=== PATIENT | female | born 1950 | race Caucasian/White ===

== ENCOUNTER 2018-08-03 20:17 | Observation (INO) ==
[2018-08-03 21:12] LABS: BASO# 0.03 X1000 (0.0-0.2); BASO% 0.5 % (0.0-0.8); EOS# 0.16 X1000 (0.0-0.7); EOS% 2.9 % (0.0-10.0); HEMATOCRIT 38.9 % (37.0-47.0); HEMOGLOBIN 13.1 g/dL (12.0-16.0); LYMPH# 2.28 X1000 (1.2-3.4); LYMPH% 41.4 % (20.5-51.1); MCH 31.3 PG (27-31); MCHC 33.7 g/dL (33-37); MCV 93.1 FL (81-99); MONO# 0.39 X1000 (0.11-0.59); MONO% 7.1 % (1.7-9.3); MPV 12.5 FL (7.4-10.4); NEUT# 2.65 X1000 (1.4-6.5); NEUT% 48.1 % (42.2-75.2); PLT 206 X1000 (130-400); RBC 4.18 XMIL (4.2-5.4); RDW 12.3 % (11.5-14.5); WBC 5.51 X1000 (4.8-10.8)
--- NOTE | 2018-08-03 21:14 | Diag Imaging Result Doc PS360 ---
EXAM: CHEST-2 VIEWS INDICATION: cp TECHNIQUE: 2 views COMPARISON: 11/26/2017 FINDINGS: The lungs are grossly clear. There is no discrete pleural fluid collection or pneumothorax. The cardiomediastinal silhouette and central vasculature are grossly unremarkable. IMPRESSION: No evidence of acute pathology by plain radiograph. Electronically signed by Arnulfo Ruiz 08/03/2018 9:11 PM
[2018-08-03 21:22] LABS: INR 0.92; PROTIME 13.2 Seconds (11.0-16.0)
[2018-08-03 21:23] LABS: PTT 28.7 Seconds (22.3-41.8)
[2018-08-03 21:39] LABS: ALB/GLOB RATIO 1.8; CALCIUM 9.5 mg/dL (8.8-10.2); POTASSIUM 3.8 mmol/L (3.5-5.1); TOTAL BILIRUBIN 0.31 mg/dL (0.20-1.00); TOTAL PROTEIN 6.2 g/dL (6.3-8.3)
--- NOTE | 2018-08-04 00:13 | PROVIDER DOCUMENTATION ---
This chart was entered by Edda Murphy Scribe, acting as scribe for Carl Lan MD. HPI-Chest Pain - General Chief Complaint: Chest Pain Stated Complaint: HIGH BLOOD PRESSURE, MID-CHEST PAIN-INTO BACK Time Seen by Provider: 08/03/18 21:38 Source: patient Allergies/Adverse Reactions: Patient Allergies Allergy/AdvReac Type Severity Reaction Status Date / Time aspirin Allergy NAUSEA Verified 11/26/17 12:11 Home Medications: Home Medication List Medication Instructions Recorded Confirmed Last Taken Type LISINOpril [Prinivil] 10 mg PO DAILY 10/18/16 11/26/17 11/25/17 21:00 History Aspirin [Adult Low Dose Aspirin EC] 81 mg PO DAILY #30 tablet. 11/28/17 Unknown Rx Omeprazole 20 mg PO DAILY #30 capsule. 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 She sts that the pain started under her left breast and radiated into substernal chest. Pt sts that her BP was 189/104. Pt sts that pain is still rpesent now, but that it has gotten better. Pt had c/p back in Nov and had a stress test as well as echocardiogram and both came out negative. Pt has family hx of heart disease as well as cancer. Pt is a current everyday smoker. Location: reports: substernal Chest Pain Radiation: reports: back Severity in ED: moderate Onset/Duration: just prior to arrival Timing: improving Context/Activities at Onset: reports: none Modifying Factors: improves with: nothing Associated Symptoms: reports: denies symptoms Nitro Today/Relief: no nitro taken today Aspirin Treatment Today: no aspirin today Prior Chest Pain/Cardiac Workup: reports: echocardiography, stress test Similar Symptoms Previously?: Yes Recently Seen Here or By Another Healthcare Provider: No Review of Systems - Adult - REVIEW OF SYSTEMS - ADULT Constitutional: reports: no symptoms reported Eyes: reports: no symptoms reported Ears, Nose, Mouth & Throat: reports: no symptoms reported Cardiovascular: reports: chest pain Respiratory: reports: no symptoms reported. denies: cough, shortness of breath, wheezing Gastrointestinal: reports: no symptoms reported. denies: abdominal pain, nausea, vomiting Genitourinary: reports: no symptoms reported Musculoskeletal: reports: no symptoms reported Integumentary: reports: no symptoms reported Neurological: reports: no symptoms reported, dizziness/vertigo Psychiatric: reports: no symptoms reported Endocrine: reports: no symptoms reported Hematologic/Lymphatic: reports: no symptoms reported Allergic/Immunologic: reports: no symptoms reported All Other Systems: Reviewed and Negative Past History - Adult - PAST MEDICAL HISTORY-ADULT Review of Records: reports: Old Records Reviewed, Nursing Assessment Review, Medications Reviewed, Social history reviewed & non-contributory. Major Childhood Illnesses: reports: denies history Cardiovascular: reports: HTN, hyperlipidemia Respiratory: reports: denies history Gastrointestinal: reports: denies history Obstetrical/Gynecological: reports: denies history Genitourinary: reports: denies history Musculoskeletal: reports: denies history Neurological: reports: denies history Endocrine/Immune: reports: thyroid disorder (hypo) Other Conditions: reports: denies history - PRIOR SURGERIES/PROCEDURES Surgical/Procedure History: reports: other (thyroid) - IMMUNIZATION STATUS Childhood Immunizations: See Nurse Assessment Flu Vaccine: See Nurse Assessment - FAMILY HISTORY Family History: reviewed, not pertinent - SOCIAL HISTORY Smoking: cigarettes, greater than 1 pack/day Provider spent 3-5 mins advising pt. on dangers of tobacco.: Discussed manners to quit use, and f/u contacts for add'l counseling. Alcohol Use Frequency: never Living Situation: family Physical Exam-General - PHYSICAL EXAM-ADULT Initial Vital Signs Reviewed: Yes - CONSTITUTIONAL General Appearance: appears well, alert, no apparent distress Progress - PLAN OF CARE/RESULTS Progress/Plan/Lab Results: Vital Signs - 8 hr 08/03/18 20:40 Temperature 98.1 F Pulse Rate 65 Respiratory Rate 18 Blood Pressure 177/96 O2 Sat by Pulse Oximetry 98 Laboratory Results - last 24 hr 08/03/18 08/03/18 08/03/18 20:58 20:58 20:58 WBC 5.51 RBC 4.18 L Hgb 13.1 Hct 38.9 MCV 93.1 MCH 31.3 H MCHC 33.7 RDW Std Deviation 12.3 Plt Count 206 MPV 12.5 H Immature Gran % (Auto) 0.0 Neut % (Auto) 48.1 Lymph % (Auto) 41.4 [place] % (Auto) 7.1 Eos % (Auto) 2.9 Baso % (Auto) 0.5 Immature Gran # (Auto) 0.00 Neut # (Auto) 2.65 Lymph # (Auto) 2.28 [place] # (Auto) 0.39 Eos # (Auto) 0.16 Baso # (Auto) 0.03 PT INR PTT (Actin FS) D-Dimer, Quantitative Sodium 143 Potassium 3.8 Chloride 107 Carbon Dioxide 25 Anion Gap 11 BUN 18 Creatinine 1.0 H Estimated GFR/1.73 m2 55 BUN/Creatinine Ratio 18 Glucose 120 H Calculated Osmolality 288 Calcium 9.5 Total Bilirubin 0.31 AST 16 ALT 7 L Alkaline Phosphatase 105 H Creatine Kinase 47 Troponin T Flj-J-Yuphlpzobrm Pept 121 Total Protein 6.2 L Albumin 4.0 Globulin 2.2 Albumin/Globulin Ratio 1.8 08/03/18 08/03/18 08/03/18 20:58 20:58 20:58 WBC RBC Hgb Hct MCV MCH MCHC RDW Std Deviation Plt Count MPV Immature Gran % (Auto) Neut % (Auto) Lymph % (Auto) [place] % (Auto) Eos % (Auto) Baso % (Auto) Immature Gran # (Auto) Neut # (Auto) Lymph # (Auto) [place] # (Auto) Eos # (Auto) Baso # (Auto) PT 13.2 INR 0.92 PTT (Actin FS) 28.7 D-Dimer, Quantitative 0.74 H Sodium Potassium Chloride Carbon Dioxide Anion Gap BUN Creatinine Estimated GFR/1.73 m2 BUN/Creatinine Ratio Glucose Calculated Osmolality Calcium Total Bilirubin AST ALT Alkaline Phosphatase Creatine Kinase Troponin T < 0.010 Aps-F-Sektygakfsb Pept Total Protein Albumin Globulin Albumin/Globulin Ratio 08/03/18 08/03/18 23:12 23:12 WBC RBC Hgb Hct MCV MCH MCHC RDW Std Deviation Plt Count MPV Immature Gran % (Auto) Neut % (Auto) Lymph % (Auto) [place] % (Auto) Eos % (Auto) Baso % (Auto) Immature Gran # (Auto) Neut # (Auto) Lymph # (Auto) [place] # (Auto) Eos # (Auto) Baso # (Auto) PT INR PTT (Actin FS) D-Dimer, Quantitative Sodium Potassium Chloride Carbon Dioxide Anion Gap BUN Creatinine Estimated GFR/1.73 m2 BUN/Creatinine Ratio Glucose Calculated Osmolality Calcium Total Bilirubin AST ALT Alkaline Phosphatase Creatine Kinase 48 Troponin T < 0.010 Lgs-A-Foqmwpbbvis Pept Total Protein Albumin Globulin Albumin/Globulin Ratio Orders Category Date Time Status Cardiac Monitoring DIRECTED Care 08/03/18 20:32 Active Oxygen Therapy- ED Nursing DIRECTED Care 08/03/18 20:32 Active Saline Loc NOW Care 08/03/18 20:32 Active CHEST-2 VIEWS [RAD] Stat Exams 08/03/18 20:[address] ANGIOGRM PULMONARY ARTERIES [CT] Stat Exams 08/03/18 22:19 Taken CBC WITH ELECTRONIC DIFF [HEME] Stat Lab 08/03/18 20:58 Completed CK PROFILE [SP CHEM] Stat Lab 08/03/18 20:58 Completed CK PROFILE [SP CHEM] Stat Lab 08/03/18 23:12 Completed COMPREHENSIVE METABOLIC PANEL [CHEM] Stat Lab 08/03/18 20:58 Completed D-DIMER [COAG] Stat Lab 08/03/18 20:58 Completed PRO B-NATRIURETIC PEPTIDE Stat Lab 08/03/18 20:58 Completed PROTIME WITH INR [COAG] Stat Lab 08/03/18 20:58 Completed PTT [COAG] Stat Lab 08/03/18 20:58 Completed TROPONIN T Stat Lab 08/03/18 20:58 Completed TROPONIN T Stat Lab 08/03/18 23:12 Completed CP/SOB/Palp >45 yrs of Age Stat Oth 08/03/18 20:32 Ordered EKG [EKG] Stat Ther 08/03/18 20:32 Ordered A/P: chest pain Atpical. HEART score 4. [address] PE neg. will admit for observation. vitals stable. Result Diagrams: 08/03/18 20:58 08/03/18 20:58 - EKG 1 Time of EKG reading by physician:: 20:34 EKG Read and Signed by:: Carl Lan EKG Interpretation (*Must complete 3 of following elements*): Normal (normal sinus rhythm, Possible left atrial enlargement, Borderline ECG) Rate: 67 Rhythm: sinus Douglas: normal QRS: normal - CONSULTS/PCP/HOSPITALIST Notification #1 *Consult/PCP/Hospitalist*: Dr Roldan Consult Disposition: Admit Departure - Departure Date of Disposition Decision: 08/04/18 Time of Disposition Decision: 00:12 DIAGNOSIS: Atypical chest pain, Emphysema lung Disposition: ADMITTED INPATIENT 09 Certified Medical Emergency: Emergent Condition: Stable Additional Freetext Instructions: We have examined and treated you today on an emergency basis only. This was not a substitute for, or an effort to provide, complete medical care. In most cases, you must let your doctor check you again. Tell your doctor about any new or lasting problems. We cannot recognize and treat all injuries or illnesses in one Emergency Department visit. If you had sp ecial tests, such as X-rays or CT scans, will be reviewed by radiologist and will call you if there are any new suggestions Follow up with primary care provider in 1 to 2 days if no improvement. If you do not have a primary care provider, you need to choose one as soon as possible. Take medicines as prescribed. Monitor for any side effects or adverse events from medications. If any side effect, adverse event or rash develops, or if you suspect any other adverse reaction to the medication, then discontinue the medication immediately and contact clinic /PCP or go to the nearest ER. Narcotic meds / sedative meds instruction - patent advised not to drive, operate any machinery or go into water after taking meds as it may impair mental ability to react to the situation in an appropriate manner. Continue other current medicines. Follow up with PCP within 24-48 hours, or sooner if symptoms worsen or fail to improve. Patient / guardian verbalizes understanding of treatment plan, medication, and side effects and agrees with treatment plan. Patient leaves ER in stable condition and ambulatory state. Return to ER as needed. Discharge instructions reviewed verbally and given to patient in written form. Follow up with primary care provider. Referrals and Follow-Ups: Clif Gaming MD [Primary Care Provider] - - Critical Care Note This patient required my direct & personal management of CC.: No Attestation - Physician/ [place] Attestation Patient care was provided by Advanced Practice Provider:: No The physician spent face to face time with patient:: Yes Advanced Practice Provider documentation review:: Supervising physician onsite and consulted in the evaluation and care of this patient. The physician did have a face to face encounter with the patient. This chart was documented by the indicated scribe, (Edad Murphy, Geo) and accurately reflects the services I performed and decisions made by me, Carl Lan MD, as attested by the provider's signature.
[2018-08-04] MEDS ORDERED: ZOFRAN IV PRN (00:18)
[2018-08-04] MEDS ORDERED: APRESOLINE IV PRN (00:24)
[2018-08-04] MEDS ORDERED: APRESOLINE IV ONE (00:24)
[2018-08-04] MEDS ORDERED: LOVENOX SUBQ SCH (00:30)
[2018-08-04] MEDS ORDERED: NS 1,000 ML IV ONE (00:54)
[2018-08-04] MEDS ORDERED: G.I. COCKTAIL PO ONE (00:55)
--- NOTE | 2018-08-04 01:42 | HISTORY AND PHYSICAL ---
CHIEF COMPLAINT: Chest pain. HISTORY OF PRESENT ILLNESS: This is a very pleasant 68-year-old female who sees Dr. Gaming outpatient. She comes in tonight after having substernal chest pain that wrapped around to her left flank, also radiated to her back roughly 1 hour prior to arrival. She has a history of hypertension and it was uncontrolled tonight. Her blood pressure was 189/104 on arrival. She had a stress test that was normal a year ago and an echocardiogram this previous November. Both were normal. She does have a large family of heart disease as well as being an everyday smoker so she is at a moderate risk. However, her first 2 cardiac enzymes in the emergency room were normal. She will be placed on observation status for further evaluation and treatment. PAST MEDICAL HISTORY: 1. Hypertension. 2. GERD. 3. Diet-controlled diabetes mellitus type 2. 4. History of B12 deficiency. 5. 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 PREVIOUS SURGICAL HISTORY: L4-L5 microdiscectomy, thyroidectomy for benign goiter, left breast lumpectomy. FAMILY HISTORY: Father in his 60s from myocardial infarction as well as having melanoma. Mother is alive with heart disease in her 80s. SOCIAL HISTORY: She is . Smokes 1 pack of cigarettes per day, has for over 20 years. Smoking cessation was gone over with the patient. She states that she will work on quitting. She denies illicit drugs or alcohol. ALLERGIES: Aspirin. HOME MEDICATION: Patient takes 1 blood pressure pill. She is unsure of the name. An order was placed for Nursing to reconcile home medications with the pharmacy. REVIEW OF SYSTEMS: Fourteen-point review of systems conducted with patient. She did become diaphoretic. However, she did not have nausea, vomiting, shortness of breath. She denied any fever, chills. bowel or bladder complaints as well. Other pertinent positives for admission are listed above in the HPI. All other systems reviewed and found to be negative. PHYSICAL EXAMINATION: VITAL SIGNS: Temperature 98.1, pulse 65, respirations 18, blood pressure 177/96, oxygen saturation 99% on room air. GENERAL: Very pleasant 68-year-old female lying in the ER stretcher, answers all questions appropriately. She is alert and oriented times 3. HEENT: Head is atraumatic, normocephalic. Pupils equal, round, reactive to light. Extraocular eye movement is intact. Sclerae are anicteric. Conjunctiva is pink. Oral mucosa is moist. NECK: Supple. No JVD. No thyromegaly. Trachea is midline. No cervical lymphadenopathy. CARDIAC: S1, S2 appreciated. No murmurs, gallops or rubs. LUNGS: Clear to auscultation bilaterally. No rhonchi, wheeze or rales. Symmetric rise and fall with respirations. ABDOMEN: Soft, nondistended, nontender. Bowel sounds present in all 4 quadrants, normoactive. No pulsatile mass. No organomegaly. EXTREMITIES: No clubbing, cyanosis or edema. Two-plus pedal pulses bilaterally. GENITOURINARY: No bladder distention. Patient voids. Otherwise deferred. NEUROLOGICAL: Alert and oriented times 3. No focal or motor deficits. Otherwise nonfocal examination. DIAGNOSTIC DATA: Chest x-ray shows chronic COPD changes. Pulmonary arteriogram excluded pulmonary embolism. LABORATORY DATA: CBC within normal limits. Coagulation studies within normal limits. D-dimer 0.74. Sodium 143. Potassium 3.8. Chloride 107. Carbon dioxide 25. BUN 18. Creatinine 1. Glucose 120. Troponin less than 0.010 times 2 sets. ASSESSMENT AND PLAN: 1. Chest pain, rule out acute coronary syndrome. Cardiac enzymes are negative times 2 sets. This appears to be atypical, probably noncardiac in nature. The patient has been diagnosed with GERD in the past. States that she does not treat it. She did take Tums prior to arrival. However, she stated that it did not immediately help the pain. As noted, she has had a recent normal stress test as well as echo. We will not repeat these at this time. We will check a lipid profile. 2. Hypertension. Unsure of what home medication the patient takes. At this time, we will give 10 mg of hydralazine. Continue hydralazine p.r.n. for systolic blood pressure greater than 165. We will find out what the patient takes and then adjust dosing as necessary. Patient has an appointment with her primary care provider, Dr. Gaming, this coming week. 3. Chronic obstructive pulmonary disease without exacerbation. Patient was unaware that she had chronic changes from smoking. Stated that she would speak to Dr. Gaming about pulmonary function tests and go from there. 4. Tobacco use. Patient smokes around a pack a day. Smoking cessation was gone over thoroughly with the patient. She states that she will work on quitting. Further recommendations per patient clinical course. Dictated by ARIEL Briones for Gonzalo Monte MD cc: ARIEL Briones MD Adnan A. Seljuki, MD
[2018-08-04] MEDS: TYLENOL PO PRN ×2 (02:15→08:20)
[2018-08-04 03:48] LABS: URINE SOURCE CLEAN CATCH
[2018-08-04 03:55] LABS: BILIRUBIN URINE NEGATIVE (NEGATIVE); BLOOD URINE TRACE (NEGATIVE); COLOR STRAW; GLUCOSE URINE NEGATIVE (NEGATIVE); KETONE URINE NEGATIVE (NEGATIVE); LEUKOCYTES URINE NEGATIVE (NEGATIVE); NITRITE URINE NEGATIVE (NEGATIVE); PH URINE 7.5; PROTEIN URINE NEGATIVE (NEGATIVE); SP GRAVITY URINE 1.011; TURBIDITY URINE CLEAR (CLEAR); UROBILINOGEN URINE NORMAL (NORMAL)
[2018-08-04 03:56] LABS: UR EPITHELIAL CELLS <10 /HPF (<10); URINE BACTERIA 1+ /HPF; URINE RBC <10 /HPF (<10); URINE WBC <10 /HPF (<10)
--- NOTE | 2018-08-04 06:28 | Diag Imaging Result Doc PS360 ---
CT ANGIOGRM PULMONARY ARTERIES - 08/03/2018 INDICATION: chest pain SOB TECHNIQUE: Axial CT images were obtained after administering intravenous contrast. Coronal MIP images were generated. COMPARISON: None FINDINGS: There is no pulmonary embolism. Heart and great vessels are normal. There is mild COPD. No infiltrates. Upper abdominal images are unremarkable. There are moderate degenerative changes of the spine. No acute or suspicious bony lesion. IMPRESSION: COPD. Negative for pulmonary embolism. This exam was performed using automated exposure control, adjustment of mA or kV according to patient size, and/or use of iterative reconstruction technique Electronically signed by Vargas Ritchie 08/04/2018 6:25 AM
[2018-08-04] MEDS ORDERED: PRILOSEC PO SCH (07:00)
[2018-08-04 07:41] LABS: AGAP 10; BUN 13 mg/dL (8-22); CALCIUM 9.3 mg/dL (8.8-10.2); CHLORIDE 109 mmol/L (98-107); COSMO 287; CREATININE 0.8 mg/dL (0.5-0.9); ESTIMATED GFR > 60; GLUCOSE 98 mg/dL (70-104); POTASSIUM 3.5 mmol/L (3.5-5.1); SODIUM 144 mmol/L (136-145); TCO2 25 mmol/L (25-35)
--- NOTE | 2018-08-04 07:41 | EKG Report ---
Test Performed on : 08/03/2018 8:34:49 PM Test Reason : cp Blood Pressure : / mmHG Vent. Rate : 067 BPM Atrial Rate : 067 BPM P-R Int : 164 ms QRS Dur : 082 ms QT Int : 404 ms P-R-T Axes : 059 018 049 degrees QTc Int : 426 ms Normal sinus rhythm. Possible Left atrial enlargement Borderline ECG When compared with ECG of 26-NOV-2017 13:13, No significant change was found Unconfirmed Result
[2018-08-04 11:21] VITALS: BP 123/67
--- NOTE | 2018-08-05 13:40 | DISCHARGE SUMMARY ---
ADMISSION DATE: 08/04/2018 DISCHARGE DATE: 08/04/2018 DISCHARGE DIAGNOSES: 1. Chest pain. Acute coronary syndrome ruled out. 2. Hypertension. 3. COPD not on any exacerbation. 4. Tobacco abuse. PROCEDURES: 1. Chest x-ray done on admission showed no evidence of acute pathology by plain radiograph. 2. Pulmonary arteriogram showed COPD but negative for pulmonary embolism. HOSPITAL COURSE: This is a 68-year-old, female who presented to the emergency department complaining of substernal chest pain that wrapped around to her left flank related to the back. She has history of hypertension not well controlled on admission. She was admitted for observation. She has a large family history of heart disease so that is why she was admitted to the hospital for observation. We have checked her troponins x3 and also she has been performed a Lexiscan stress test done last January. Considering that the patient does not have any chest pain anymore and she wanted to go home, I decided to let her go. The patient is supposed to see a sql server consultant in 4 weeks. Also finding in the CT scan showed emphysema. Patient is a current smoker so, she was recommended to see a pulmonary doctor. She is planning to see Dr. Ceuva as an outpatient. At this point, patient is stable and being released in stable condition. DISCHARGE PHYSICAL EXAMINATION: Temperature 97.8 degrees, heart rate 66, respiratory rate 16, blood pressure 123/67. O2 saturation 98% on room air. General Examination: This is a chronically ill-appearing, 68-year-old female lying in bed, in no acute distress. Cardiovascular: S1, S2 heard. No murmurs, gallops, or rubs. Regular rate and rhythm. Respiratory: Decreased breath sounds globally but no wheezing noted. Patient is not using any accessory muscles or having work of breathing. Abdomen: Soft, nontender to palpation. Bowel sounds present. No organomegaly. Extremities: No clubbing, no cyanosis or edema. Peripheral pulses present in both legs. Neurological: The patient is alert and oriented x3. Moves 4 extremities. DISCHARGE DISPOSITION: 1. Home to self-care. 2. Irbesartan 300 mg 1 tablet p.o. daily. 3. Plavix 75 mg 1 tablet p.o. daily. DISPOSITION: The patient is going to be seen by Dr. Gaming in a week and with sql server consultant in this case, Dr. Cueva, in 4 to 5 weeks as an outpatient. cc: Eduardo Menchaca MD [facility] CAMPUSJaren
== END 2018-08-04 17:15 | disposition home or self-care (01) ==
LOC: ED 20:17 → 3N 20:17 → SUATTDRO 08-04 01:56 → 3N 08-04 02:39
PROVIDERS: ATTEND Internal Medicine
CPT/HCPCS: 71020; 71046; 71275; 80048; 80053; 80061; 81001; 82550; 83721; 83880; 84484; 85025; 85379; 85610; 85730; 93005; 94761; A9270; J0360; J1650; J7030; Q9967